=== PATIENT | male | born 1940 | race Caucasian/White ===

== ENCOUNTER → 2017-08-22 | Outpatient (CLI) | payer MEDICARE ==
[~2017-08-22] MED LIST: ALLO300T2 PO; AMIT50TA3 PO; AMLO5TAB2 PO; FURO40TA5 PO; LEVO75TA10 PO; METF500T6 PO; METO50TA18 PO; SERT50TA12 PO
== END | disposition home or self-care (01) ==
LOC: RAH 15:07
PROVIDERS: ATTEND Family Medicine
DX: M79.671 Pain in right foot (principal); M79.89 Other specified soft tissue disorders
CPT/HCPCS: 73630

== ENCOUNTER → 2017-09-21 | Outpatient (CLI) | payer MEDICARE | END | disposition home or self-care (01) | LOC: OIH 13:21 | PROVIDERS: ATTEND Family Medicine | DX: I51.7 Cardiomegaly (principal); M47.895 Other spondylosis, thoracolumbar region; R91.8 Other nonspecific abnormal finding of lung field | CPT/HCPCS: 71046 ==

== ENCOUNTER → 2017-10-03 | Outpatient (CLI) | payer MEDICARE ==
[~2017-10-03] VITALS: Ht 180.3 cm; Wt 119.3 kg
[~2017-10-03] MED LIST changes: +REGADENOSON 0.4 MG/5 ML PF SYG IVP SCH
== END | disposition home or self-care (01) ==
LOC: SHCH 10:56
PROVIDERS: ATTEND Internal Medicine Cardiovascular Disease
DX: I25.810 Atherosclerosis of coronary artery bypass graft(s) without angina pectoris (principal)
CPT/HCPCS: 78452; 93017; 96374; A9500 ×2; J2785

== ENCOUNTER 2018-01-30 12:41 | Emergency (ER) | payer MEDICARE ==
[~2018-01-30 12:41] MED LIST changes: -AMLO5TAB2 PO; +FLUOCINONIDE TP; +HYDROCORTISONE CREAM TP; +METF-444 PO; -METF500T6 PO; +METO25TA6 PO; -REGADENOSON 0.4 MG/5 ML PF SYG IVP SCH; +TRIAMCINOLONE CREAM TP
== END 2018-01-30 13:41 | disposition home or self-care (01) ==
LOC: EDH 12:41
DX: S31.133A Puncture wound of abdominal wall without foreign body, right lower quadrant without penetration into peritoneal cavity, initial encounter (principal); E11.9 Type 2 diabetes mellitus without complications; E78.5 Hyperlipidemia, unspecified; I10 Essential (primary) hypertension; Z98.890 Other specified postprocedural states; W26.0XXA Contact with knife, initial encounter; Y93.G3 Activity, cooking and baking; Y92.098 Other place in other non-institutional residence as the place of occurrence of the external cause; Y99.8 Other external cause status

== ENCOUNTER 2018-05-08 06:45 | Day surgery (SDC) | payer MEDICARE ==
[2018-05-04 11:09] VITALS: BP 115/72
[2018-05-04 11:18] LABS: BASOPHILS % (AUTO) 0.9 % (0.0-5.0); EOSINOPHILS % (AUTO) 2.9 % (0.0-8.0); HEMATOCRIT 38.6 % (42-54); LYMPHOCYTES % (AUTO) 13.5 % (21.0-51.0); MEAN CORPUSCULAR HEMOGLOBIN 33.1 pg (27.0-33.0); MEAN CORPUSCULAR HGB CONC 32.9 g/dL (32.0-36.0); MEAN CORPUSCULAR VOLUME 100.8 fL (79-99); MONOCYTES % (AUTO) 6.4 % (3.0-13.0); NEUTROPHILS % (AUTO) 76.3 % (40.0-77.0); PLATELET COUNT (AUTO) 112 K/uL (130-400); RED BLOOD CELL COUNT(AUTO) 3.83 MIL/uL (4.50-6.20); WHITE BLOOD COUNT (AUTO) 8.5 K/uL (4.8-10.8)
[2018-05-04 11:26] LABS: APPEARANCE,URINE Clear (CLEAR); BILIRUBIN,URINE Negative (NEGATIVE); COLOR,URINE Dark Yellow (YELLOW); GLUCOSE, URINE (UA) Negative (NEGATIVE); KETONES,URINE Negative (NEGATIVE); LEUKOCYTE ESTERASE ,URINE Negative (NEGATIVE); NITRATE,URINE Negative (NEGATIVE); OCCULT BLOOD,URINE Negative (NEGATIVE); PROTEIN,URINE POS 2+ (NEGATIVE)
[2018-05-04 11:33] LABS: CREATININE 1.6 mg/dL (0.5-1.5); POTASSIUM 4.6 mmol/L (3.5-5.1)
[2018-05-04 11:36] LABS: INR 1.14 (0.85-1.15); PARTIAL THROMBOPLASTIN TIME 29.7 SEC (26.3-35.5); PROTHROMBIN TIME 11.9 SEC (9.6-11.6)
[2018-05-04 11:49] LABS: BACTERIA,URINE Rare /HPF (None Seen); RBC,URINE 0-1 /HPF (0-1); SQUAMOUS EPITHELIAL CELL,UR Rare /HPF (0-2); WBC,URINE 0-1 /HPF (0-1)
[2018-05-04 12:00] LABS: BAND NEUTROPHILS % (MANUAL) 1 % (0-2); EOSINOPHILS % (MANUAL) 2 % (1-6); LYMPHOCYTES % (MANUAL) 13 % (22-44); MAN.DIFF COMMENT-IMPRESSION MANUAL DIFFERENTIAL; MONOCYTES % (MANUAL) 6 % (2-9); REACTIVE LYMPHOCYTES 2 % (0-0); SEGMENTED NEUTROPHILS % 76 % (40-70)
[2018-05-08] VITALS (10 sets, daily range): BP systolic 101–141; BP diastolic 65–96
[~2018-05-08] VITALS: Ht 175.3 cm; Wt 118.6 kg
[~2018-05-08 06:45] MED LIST changes: -AMIT50TA3 PO; +ELTR75TA PO
[2018-05-08] MEDS ORDERED: SODIUM CHLORIDE 0.9% 1000ML 1,000 ML IV ONE (07:39)
[2018-05-08 07:53] LABS: CREATININE 1.7 mg/dL (0.5-1.5); POTASSIUM 4.6 mmol/L (3.5-5.1)
[2018-05-08] MEDS ORDERED: NITROGLYCERIN 5 MG/ML 10 ML VIAL IV ONE (12:39)
[2018-05-08] MEDS ORDERED: IOHEXOL-350 50ML VIAL IV ONE (12:39)
[2018-05-08] MEDS ORDERED: HEPARIN SODIUM 1000UNIT/ML 10ML VIAL ONE (12:39)
[2018-05-08] MEDS ORDERED: IOHEXOL 350 MG/ML 100ML INFUS..BTL IV ONE (12:39)
[2018-05-08] MEDS ORDERED: SODIUM BICARB 50MEQ 50ML VIAL ONE (12:39)
[2018-05-08] MEDS ORDERED: MEPERIDINE-PF 25 MG/ML SYG ONE ×2 (12:39→13:24)
[2018-05-08] MEDS ORDERED: LIDOCAINE HCL 1% 20 ML VIAL ONE (12:39)
[2018-05-08] MEDS ORDERED: MIDAZOLAM HCL 1 MG/ML 2ML VIAL ONE ×2 (12:40→13:24)
[2018-05-08] MEDS ORDERED: ACETAMINOPHEN-CODEINE 300/30MG TAB PO PRN ×2 (14:15)
[2018-05-08] MEDS ORDERED: GLUCAGON 1MG KIT 1 MG ML IM PRN (14:15)
[2018-05-08] MEDS ORDERED: DEXTROSE 50%-WATER 50 ML DISP.SYRIN IV PRN (14:15)
[2018-05-08] MEDS ORDERED: INSULIN HUMULIN R 100 UNIT/ML 3ML SQ SCH (16:30)
== END 2018-05-08 18:00 | disposition home or self-care (01) ==
LOC: DAH 06:45
PROVIDERS: ATTEND Internal Medicine Cardiovascular Disease
DX: I25.708 Atherosclerosis of coronary artery bypass graft(s), unspecified, with other forms of angina pectoris (principal); I11.0 Hypertensive heart disease with heart failure; I50.43 Acute on chronic combined systolic (congestive) and diastolic (congestive) heart failure; E03.9 Hypothyroidism, unspecified; Z79.899 Other long term (current) drug therapy; E78.5 Hyperlipidemia, unspecified; E11.9 Type 2 diabetes mellitus without complications; D69.6 Thrombocytopenia, unspecified; Z85.46 Personal history of malignant neoplasm of prostate; I48.2 Chronic atrial fibrillation; Z98.890 Other specified postprocedural states; Z82.49 Family history of ischemic heart disease and other diseases of the circulatory system; Z88.8 Allergy status to other drugs, medicaments and biological substances
CPT/HCPCS: 36415 ×2; 71045; 80048 ×2; 81001; 82948 ×2; 85025; 85610; 85730; 93005; 93459; A4606; C1760; C1894; J1644; J2175 ×2; J2250 ×2; J3490 ×2; J7030; Q9965; Q9967 ×2; 99156; 99157

== ENCOUNTER 2018-08-30 21:59 | Emergency (ER) | payer MEDICARE | END 2018-08-31 00:21 | disposition home or self-care (01) | LOC: EDH 21:59 | DX: L76.22 Postprocedural hemorrhage of skin and subcutaneous tissue following other procedure (principal); I10 Essential (primary) hypertension; E78.5 Hyperlipidemia, unspecified; E11.9 Type 2 diabetes mellitus without complications; Z87.891 Personal history of nicotine dependence ==